=== PATIENT | male | born 1970 | race Caucasian/White ===

== ENCOUNTER 2017-10-07 21:32 | Observation (INO) ==
--- NOTE | 2017-10-07 22:23 | Emergency Department Report ---
General Adult HPI - General Chief complaint: Anxiety Stated complaint: Anxiety Time Seen by Provider: 10/07/17 22:04 Source: patient Mode of arrival: EMS Limitations: no limitations - History of Present Illness HPI narrative: Pt presents with resolved chest pain. Pt had a cardiac stent placed 2 days ago and was released from the hospital this afternoon. While reading his dismissal instructions he was concerned he was having some chest pain. Pt denies SOA, or nausea. He does describe some pain to his left arm but believes that was from where his IV had been. He also reports a brief episode of diaphoresis with the pain. He is concerned it is mostly anxiety but wanted to get it checked out. Onset (ago): hour(s) Radiation: extremity Severity: mild Consistency: now resolved - Related Data Allergies Allergy/AdvReac Type Severity Reaction Status Date / Time No Known Allergies Allergy Verified 10/07/17 23:28 Review of Systems All systems: reviewed and negative except as stated Constitutional: Reports: as per HPI Cardiovascular: Reports: as per HPI Respiratory: Reports: as per HPI Gastrointestinal: Reports: as per HPI Musculoskeletal: Reports: as per HPI Physical Exam - Limitations Limitations: no limitations - General General appearance: alert, in no apparent distress - Normal Exams: Head:: Normocephalic without trauma Neck:: Full range of motion, without adenopathy Chest/Respirations:: Clear all quach, with good airflow, and symmetry bilaterally Cardiovascular:: Regular rate and rhythm, without murmur or gallop, Pulses 2+ all extremities, capillary refill, <2 seconds all extremities Abdomen:: Bowel sounds positive, soft, non-tender, non-distended Musculoskeletal:: No tenderness, or deformity noted, good range of motion, all extremities Integumentary:: No rashes Neurological:: Patient is alert, and oriented, cranial nerves, motor/sensory/ cerebellar, exams w/o gross deficits, to observation Psychiatric:: Patient exhibits, appropriate attention, emotion and affect Course Vital Signs Temperature 98.3 F 10/07/17 21:47 Pulse Rate 83 10/07/17 21:47 Respiratory Rate 22 10/07/17 21:47 Blood Pressure 134/95 H 10/07/17 21:47 Pulse Oximetry 98 10/07/17 21:47 Temperature 98.3 F 10/07/17 21:47 Pulse Rate 83 10/07/17 21:47 Respiratory Rate 22 10/07/17 21:47 Blood Pressure 134/95 H 10/07/17 21:47 Pulse Oximetry 98 10/07/17 21:47 Medical Decision Making - MDM Narrative Medical decision making narrative: EKg and lab reviewed. Results of elevated Toponin discussed with Dr Bain who would like pt admitted observation and NPO for heart cath tomorrow. Results and plan discussed with patient who voices understanding. Questions answered. Reassurances offered. - Differential Diagnosis stable angina, unstable angina, atypical chest pain. - Lab Data Lab results reviewed: Yes: I reviewed the patient's lab results. Result diagrams: 10/07/17 22:28 10/07/17 22:28 Lab Results 10/07/17 10/07/17 Range/Units 22:28 22:28 WBC 10.6 (4.5-11.0) T/MM3 RBC 4.76 (4.50-5.90) M/MM3 Hgb 15.0 (13.5-17.5) GM/DL Hct 43.7 (41-53) % MCV 91.8 (80-100) UM3 MCH 31.5 (26-34) UUG MCHC 34.3 (31-37) GM/DL RDW Std Deviation 43.7 (36.9-50.2) FL Plt Count 293 (130-400) T/MM3 MPV 9.6 (9.4-12.4) UM3 Immature Gran % (Auto) 0.1 (0.0-0.5) % Neut % (Auto) 69.3 H (33-66) % Lymph % (Auto) 19.5 L (23-45) % [place] % (Auto) 9.7 H (0-9.0) % Eos % (Auto) 1.1 (0-4) % Baso % (Auto) 0.3 (0-2) % Neut # (Auto) 7.4 (1.8-7.7) T/MM3 Lymph # (Auto) 2.1 (1-4.8) T/MM3 [place] # (Auto) 1.0 H (0-0.8) T/MM3 Eos # (Auto) 0.1 (0-0.5) T/MM3 Baso # (Auto) 0.0 (0-0.2) T/MM3 Abs Immat Gran (auto) 0.01 (0.00-0.03) T/MM3 Turbidity < 20 (0-20) Sodium 142 (134-144) MEQ/L Potassium 3.5 L (3.6-5) MEQ/L Chloride 105 (98-107) MEQ/L Carbon Dioxide 21 L (22-30) MEQ/L Anion Gap 16 H (5-15) MEQ/L BUN 16.0 (9-20) MG/DL Creatinine 0.9 (0.8-1.5) mg/dL GFR Calculation 90 BUN/Creatinine Ratio 18 (6-26) RATIO Glucose 100 (75-110) MG/DL Calculated Osmolality 274 (261-280) MOSM/KG Calcium 10.3 H (8.4-10.2) MG/DL Total Bilirubin 1.50 H (0.20-1.30) MG/DL Icterus Index < 2 (0-7) AST 72 H (17-59) U/L ALT 57 H (1-50) U/L Alkaline Phosphatase 98 (38-126) U/L Troponin I 4.400 H (0-0.12) ng/ml Total Protein 8.2 (6.3-8.2) g/dL Albumin 4.9 (3.5-5.0) g/dL Globulin 3.3 (2.4-3.6) G/DL Albumin/Globulin Ratio 1.5 (1.1-2.2) RATIO Specimen Hemolysis < 15 (0-25) - EKG Data EKG #1 EKG attestation: Yes: I reviewed and interpreted this EKG. EKG shows normal: sinus rhythm Rate: normal Rhythm: NSR Disposition Clinical Impression: Elevated troponin I level Disposition: 02 To [facility] [place] Acute Care Condition: Improved Time of Disposition: 23:31 - Seen By: midlevel
[2017-10-07] MEDS ORDERED: SALINE FLUSH 10ml SYRINGE IVF PRN (23:56)
[2017-10-08 00:40] VITALS: BMI 27.8
[2017-10-08] MEDS ORDERED: ONDANSETRON 4 MG/2 ML INJECTION IVP PRN (01:47)
[2017-10-08] MEDS ORDERED: LOPERAMIDE 2 MG CAPSULE PO PRN (01:47)
[2017-10-08] MEDS ORDERED: ACETAMINOPHEN 325 MG TABLET PO PRN (01:48)
[2017-10-08] MEDS ORDERED: ALBUTEROL 2.5mg/3ml (0.083%) NEB AEROSOL PRN (01:49)
[2017-10-08 08:27] VITALS: BP 138/93; RESP 14; TEMP 97.8; O2SAT 96
[2017-10-08 08:48] VITALS: PULSE 89
[2017-10-08] MEDS ORDERED: FLUTICASONE/VILANTEROL 100/25mcg INHALER ORAL INH SCH (09:00)
[2017-10-08] MEDS ORDERED: TICAGRELOR 90 MG TABLET PO SCH (09:00)
[2017-10-08] MEDS ORDERED: IRBESARTAN 300 MG TABLET PO SCH (09:00)
[2017-10-08] MEDS ORDERED: ASPIRIN 81 MG CHEWABLE TABLET PO SCH (09:00)
--- NOTE | 2017-10-08 13:38 | Cardiology History & Physical ---
History of Present Illness Chief complaint: chest pain HPI: Som is a 47 year old male who had a NTEMI and cardiac stent placed to the RCA on 10/05/17 and was released from the hospital yesterday afternoon. He reportedly took his medications on an empty stomach causing some epigastric indigestion type pain, associated with diaphoresis. He denied SOA, or nausea. Review of Systems - Constitutional Constitutional: Absent: chills, fatigue, fever(s) - EENMT Eyes: Absent: change in vision Balance: Absent: vertigo Mouth/Throat: Absent: sore throat - Cardiovascular Cardiovascular: Present: chest pain, syncope. Absent: palpitations, dyspnea on exertion, orthopnea, edema Rhythm: Absent: abnormal rhythm - Respiratory Respiratory: Absent: cough, dyspnea, dyspnea on exertion - Gastrointestinal Gastrointestinal: Absent: abdominal pain, nausea, vomiting - Genitourinary Genitourinary: Absent: difficulty with ejaculations - Integumentary/Breasts Integumentary: Absent: rash - Neurological Neurological: Absent: dizziness - Endocrine Endocrine: Absent: palpitations PFSH Patient Stated Medical History Other HEENT Yes: reading GLASSES Hypertension Yes Myocardial Infarction Yes: had one on wednesday Asthma Yes Hx Kidney Stones Yes: MULTIPLE Anesthesia Reactions Yes: has headache when awakes Surgical History: Coronary stent RCA 10/05/17 Family History: Denies family history of heart disease - Social History Smoking status: Former smoker Substance use type: does not use Alcohol intake frequency: does not drink Housing: house Household members: none Current occupational status: employed Current residence: Apartment/Private Home Medications Home Medications Medication Instructions Recorded Confirmed Type Albuterol Sulfate [Proair Hfa] 2 puff INH PRN PRN 10/07/17 10/07/17 History Aspirin 81 mg PO DAILY 10/07/17 10/07/17 History Atorvastatin Calcium 80 mg PO HS 10/07/17 10/07/17 History Fluticasone/Vilanterol Inhaler 1 puff INH DAILY 10/07/17 10/07/17 History [Breo Ellipta 100-25 mcg Inhaler] Irbesartan [Avapro] 300 mg PO DAILY 10/07/17 10/07/17 History Metoprolol Tartrate [Lopressor] 12.5 mg PO BID 10/07/17 10/07/17 History Ticagrelor [Brilinta] 90 mg PO BID 10/07/17 10/07/17 History Allergies Allergy/AdvReac Type Severity Reaction Status Date / Time No Known Allergies Allergy Verified 10/07/17 23:28 Exam Vital signs: Temperature 97.8 F 10/08/17 08:00 Pulse Rate 89 10/08/17 08:00 Respiratory Rate 14 10/08/17 08:00 Blood Pressure 138/93 H 10/08/17 08:00 Pulse Oximetry 96 10/08/17 08:00 - Constitutional no acute distress, well nourished, cooperative - Routine HEENT Exam Head: Present: normocephalic ENT: Present: mucous membranes moist - Routine Neck Exam Absent: JVD, carotid bruit - Routine Chest/Breast/Axilla Exam Chest wall: Absent: tenderness - Routine Respiratory Exam Present: CTA bilaterally. Absent: dyspnea, rales, wheezes - Routine Cardiovascular Exam Present: RRR, no murmur - Routine Abdominal Exam Present: soft - Routine Extremities Exam Present: no edema, pulses intact - Routine Skin Exam Present: intact, dry, warm - Routine Neurological Exam Present: alert, oriented X3 - Routine Psychiatric Exam Present: normal affect, normal thought process Results 10/08/17 04:14 10/08/17 04:14 Cardiac Enzymes 10/08/17 10/08/17 Range/Units 04:14 10:24 Troponin I 3.680 H 2.900 H (0-0.12) ng/ml CBC 10/08/17 Range/Units 04:14 WBC 9.9 (4.5-11.0) T/MM3 RBC 4.65 (4.50-5.90) M/MM3 Hgb 14.9 (13.5-17.5) GM/DL Hct 42.9 (41-53) % Plt Count 302 (130-400) T/MM3 Neut # (Auto) 6.4 (1.8-7.7) T/MM3 Lymph # (Auto) 2.4 (1-4.8) T/MM3 [place] # (Auto) 1.0 H (0-0.8) T/MM3 Eos # (Auto) 0.1 (0-0.5) T/MM3 Baso # (Auto) 0.0 (0-0.2) T/MM3 Comprehensive Metabolic Panel 10/08/17 Range/Units 04:14 Sodium 144 (134-144) MEQ/L Potassium 3.8 (3.6-5) MEQ/L Chloride 105 (98-107) MEQ/L Carbon Dioxide 25 (22-30) MEQ/L BUN 15.0 (9-20) MG/DL Creatinine 1.0 (0.8-1.5) mg/dL Glucose 100 (75-110) MG/DL Calcium 9.6 (8.4-10.2) MG/DL Intake and Output 10/07/17 10/08/17 10/08/17 22:59 06:59 14:59 Other: # Voids 1 Weight 188 lb 7.924 oz 186 lb 4.65 oz Patient Weight 10/09/17 06:59 Weight 186 lb 4.65 oz - Imaging and Cardiology Imaging & Cardiology Narrative: Date of Exam: 10/08/17 Ordering Provider: Marcela Daly APRN Type of Exam(s): XR chest 1V Reason for Exam(s): chest pain Indication: chest pain PROCEDURE: XR chest 1V: Encounter: Initial Comparison: None FINDINGS: The lungs are clear. There is no abnormal airspace opacity, pleural effusion or pneumothorax identified. The heart size, pulmonary vasculature and mediastinum are within normal limits. No significant skeletal abnormality is seen. IMPRESSION: No acute cardiopulmonary abnormality 10/08/17 14:45 EKG interpretations - EKG EKG results cardiology: sinus rhythm - [place], pacemaker, normal Myocardial infarction: inferior [place] (acute or recent) Hospital Course This is a general summary of the patient's hospital course. For more details refer to the complete medical record. Time spent with patient: 25 - 35 minutes Resuscitation Status: Full Code Assessment and Plan - Attestation Attestation Narrative: 10/13/17 12:53 Recommendation After examining the patient I agree with the above assessment. I am involved in the formulation of the patient's plan of care. - Assessment and Plan (1) Atherosclerotic heart disease of [place] coronary artery without angina pectoris Status: Chronic Recent [place] with stent to RCA -Troponin peaked at 22 - Last night had epigastric pain following medication ingestion - EKG shows SR with recent inferior [place] - Troponin in ED 4.400, followed by 3.680, 2.900, trending down. - Continue Brilinta and Aspirin - Recommend Cardiac Rehab (2) S/P coronary artery stent placement Status: Acute
--- NOTE | 2017-10-08 13:57 | XRay Report ---
Indication: chest pain PROCEDURE: XR chest 1V: Encounter: Initial Comparison: None FINDINGS: The lungs are clear. There is no abnormal airspace opacity, pleural effusion or pneumothorax identified. The heart size, pulmonary vasculature and mediastinum are within normal limits. No significant skeletal abnormality is seen. IMPRESSION: No acute cardiopulmonary abnormality. .
--- NOTE | 2017-10-08 14:53 | Discharge Summary ---
<Marcela Daly - Last Filed: 10/08/17 14:49> Discharge Information Date of admission: 10/08/17 00:15 Anticipated date of discharge: 10/08/17 Attending Physician: Андрей Bain MD Primary care physician: Antonio Scruggs - Discharge Diagnosis (1) Atherosclerotic heart disease of [place] coronary artery without angina pectoris Status: Chronic (2) S/P coronary artery stent placement Status: Acute (3) Mixed hyperlipidemia Status: Acute NSTEMI, CAD, HLD - Laboratory Labs: 10/08/17 04:14 10/08/17 04:14 - Radiology Radiology: Date of Exam: 10/08/17 Ordering Provider: Marcela Daly [employer] Type of Exam(s): XR chest 1V Reason for Exam(s): chest pain Indication: chest pain PROCEDURE: XR chest 1V: Encounter: Initial Comparison: None FINDINGS: The lungs are clear. There is no abnormal airspace opacity, pleural effusion or pneumothorax identified. The heart size, pulmonary vasculature and mediastinum are within normal limits. No significant skeletal abnormality is seen. IMPRESSION: No acute cardiopulmonary abnormality History of Present Illness HPI: Som is a 47 year old male who had a NSTEMI and cardiac stent placed to the RCA on 10/05/17 and was released from the hospital yesterday afternoon. He reportedly took his medications on an empty stomach causing some epigastric indigestion type pain, associated with diaphoresis. He denied SOA, or nausea. 10/08/17 14:53 Hospital Course This is a general summary of the patient's hospital course. For more details refer to the complete medical record. Hospital course: Recent [place] with stent to RCA -Troponin peaked at 22 - Last night had epigastric pain following medication ingestion - EKG shows SR with recent inferior [place] - Troponin in ED 4.400, followed by 3.680, 2.900, trending down. - Continue Brilinta and Aspirin - Recommend Cardiac Rehab Time spent with patient: 25 - 35 minutes Resuscitation Status: Full Code Exam Vital signs: Temperature 97.8 F 10/08/17 08:00 Pulse Rate 89 10/08/17 08:00 Respiratory Rate 14 10/08/17 08:00 Blood Pressure 138/93 H 10/08/17 08:00 Pulse Oximetry 96 10/08/17 08:00 - Constitutional no acute distress, well nourished, cooperative - Routine HEENT Exam Head: Present: normocephalic ENT: Present: mucous membranes moist - Routine Neck Exam Absent: JVD, carotid bruit - Routine Chest/Breast/Axilla Exam Chest wall: Absent: tenderness - Routine Respiratory Exam Present: CTA bilaterally. Absent: rales, wheezes - Routine Cardiovascular Exam Present: RRR, no murmur - Routine Abdominal Exam Present: soft, normoactive bowel sounds - Routine Extremities Exam Present: no edema - Routine Skin Exam Present: intact, dry, warm - Routine Neurological Exam Present: alert, oriented X3 - Routine Psychiatric Exam Present: normal affect, normal thought process Results 10/08/17 04:14 10/08/17 04:14 Cardiac Enzymes 10/08/17 10/08/17 Range/Units 04:14 10:24 Troponin I 3.680 H 2.900 H (0-0.12) ng/ml CBC 10/08/17 Range/Units 04:14 WBC 9.9 (4.5-11.0) T/MM3 RBC 4.65 (4.50-5.90) M/MM3 Hgb 14.9 (13.5-17.5) GM/DL Hct 42.9 (41-53) % Plt Count 302 (130-400) T/MM3 Neut # (Auto) 6.4 (1.8-7.7) T/MM3 Lymph # (Auto) 2.4 (1-4.8) T/MM3 [place] # (Auto) 1.0 H (0-0.8) T/MM3 Eos # (Auto) 0.1 (0-0.5) T/MM3 Baso # (Auto) 0.0 (0-0.2) T/MM3 Comprehensive Metabolic Panel 10/08/17 Range/Units 04:14 Sodium 144 (134-144) MEQ/L Potassium 3.8 (3.6-5) MEQ/L Chloride 105 (98-107) MEQ/L Carbon Dioxide 25 (22-30) MEQ/L BUN 15.0 (9-20) MG/DL Creatinine 1.0 (0.8-1.5) mg/dL Glucose 100 (75-110) MG/DL Calcium 9.6 (8.4-10.2) MG/DL Intake and Output 10/07/17 10/08/1718 22:59 06:59 14:59 Other: # Voids 1 4 Weight 188 lb 7.924 oz 186 lb 4.65 oz Patient Weight 10/09/17 06:59 Weight 186 lb 4.65 oz - Imaging and Cardiology Imaging & Cardiology Narrative: = = = = = = = = = = = = = = = = = = = = = = = = = = = = = = = = = = = = = = = = = = = = = = = = = = = = = = = = = = = Date of Exam: 10/08/17 Ordering Provider: Marcela Daly APRN Type of Exam(s): XR chest 1V Reason for Exam(s): chest pain Indication: chest pain PROCEDURE: XR chest 1V: Encounter: Initial Comparison: None FINDINGS: The lungs are clear. There is no abnormal airspace opacity, pleural effusion or pneumothorax identified. The heart size, pulmonary vasculature and mediastinum are within normal limits. No significant skeletal abnormality is seen. IMPRESSION: No acute cardiopulmonary abnormality. 10/08/17 14:54 Discharge Plan - Med Rec/Dispo Referrals/Follow Up: Андрей Bain MD [Physician] - 2 Weeks Truv Instructions: [facility] [place] Heart Cath Prescriptions: Continue Albuterol Sulfate [Proair Hfa] 2 puff INH PRN PRN PRN Reason: Dyspnea Atorvastatin Calcium 80 mg PO HS Aspirin 81 mg PO DAILY Ticagrelor [Brilinta] 90 mg PO BID Fluticasone/Vilanterol Inhaler [Breo Ellipta 100-25 mcg Inhaler] 1 puff INH DAILY Metoprolol Tartrate [Lopressor] 12.5 mg PO BID Irbesartan [Avapro] 300 mg PO DAILY - Disposition 01 Discharged Home, Self-Care - Dismissal Complete Discharge Instructions are:: Complete <Андрей Bain - Last Filed: 10/13/17 12:54> Discharge Information Date of admission: 10/08/17 00:15 Attending Physician: Андрей Bain MD Primary care physician: Antonio Scruggs - Discharge Diagnosis (1) Atherosclerotic heart disease of [place] coronary artery without angina pectoris Status: Chronic (2) S/P coronary artery stent placement Status: Acute - Laboratory Labs: 10/08/17 04:14 10/08/17 04:14 Hospital Course This is a general summary of the patient's hospital course. For more details refer to the complete medical record. Exam Vital signs: Temperature 97.8 F 10/08/17 08:00 Pulse Rate 89 10/08/17 08:00 Respiratory Rate 14 10/08/17 08:00 Blood Pressure 138/93 H 10/08/17 08:00 Pulse Oximetry 96 10/08/17 08:00 Results 10/08/17 04:14 10/08/17 04:14 Attestation Narriative - Attestation Attestation Narrative: 10/13/17 12:54 Recommendation After examining the patient I agree with the above assessment. I am involved in the formulation of the patient's plan of care.
[2017-10-08] MEDS ORDERED: ATORVASTATIN 40 MG TABLET PO SCH (21:00)
== END 2017-10-08 15:37 | disposition home or self-care (01) ==
LOC: ED 21:32 → SRG 21:32
PROVIDERS: ADMIT Internal Medicine Cardiovascular Disease; ATTEND Internal Medicine Cardiovascular Disease